=== PATIENT | female | born 1995 | race Two or more races ===

== ENCOUNTER 2021-12-04 14:08 | Emergency (ER) | payer OTHER ==
[~2021-12-04] VITALS: Ht 165.1 cm; Wt 115.2 kg
[~2021-12-04 14:08] MED LIST: ZYRTEC10 MG PO
[2021-12-04] MEDS ORDERED: PRENA1 CHEW TA1.4 MG PO (14:34)
[2021-12-04] MEDS ORDERED: TUSNEL LIQUID178 ML PO (18:47)
[2021-12-04] MEDS ORDERED: MEDROLPACK PO (18:47)
[2021-12-04] MEDS ORDERED: IPRAT-ALBUT 0.5-3 ML IH (18:47)
[2021-12-04] MEDS ORDERED: ZITHROMAX500 MG PO (18:47)
[2021-12-04] MEDS ORDERED: ONDANSETRON ODT8 MG PO (19:04)
== END 2021-12-04 19:08 | disposition home or self-care (01) ==
LOC: ER 14:08
DX: O26.891 Other specified pregnancy related conditions, first trimester (principal); O21.8 Other vomiting complicating pregnancy; Z3A.08 8 weeks gestation of pregnancy; R06.02 Shortness of breath; R05.9 Cough, unspecified; J21.9 Acute bronchiolitis, unspecified; E86.0 Dehydration; K29.70 Gastritis, unspecified, without bleeding; Z20.822 Contact with and (suspected) exposure to COVID-19